=== PATIENT | female | born 1995 | race Hispanic/Latino ===

== ENCOUNTER 2022-02-23 22:12 | Emergency (ER) | payer MEDICAID ==
[~2022-02-23] VITALS: Ht 162.6 cm; Wt 78.9 kg
[2022-02-23 22:15] VITALS: BP 125/74
[2022-02-23] MEDS ORDERED: TETRACAINE HCL 0.5% 4 ML OPHTH SOLN OP SCH (23:00)
[2022-02-23] MEDS ORDERED: TETRACAINE HCL 0.5% 4 ML OPHTH SOLN ONE (23:02)
[2022-02-23] MEDS ORDERED: NA BORATE/BORIC AC/H2O/NACL 120 ML OPHTH IRRIG SOLN ONE (23:04)
[2022-02-23] MEDS ORDERED: SULFAMETHOX-TMP DS 800/160 TAB PO SCH (23:30)
[2022-02-23] MEDS ORDERED: ERYTHROMYCIN BASE 0.5% OPHTH OINT 1 GM TUBE ONE (23:58)
[2022-02-24] MEDS ORDERED: ERYTHROMYCIN BASE 0.5% OPHTH OINT 1 GM TUBE OU SCH
[2022-02-24] MEDS ORDERED: ERYT1OIN7 OP (00:01)
== END 2022-02-24 00:09 | disposition home or self-care (01) ==
LOC: EDH 22:12
DX: H57.89 Other specified disorders of eye and adnexa (principal)